=== PATIENT | female | born 1945 | race Caucasian/White ===

== ENCOUNTER → 2018-12-15 | Outpatient (CLI) | payer MEDICARE ==
--- NOTE | 2018-12-15 11:43 | Diagnostic Imaging Report ---
INDICATION: Shortness of breath. TIME OF EXAMINATION: 11:17 AM. COMPARISON: No prior studies are available for comparison. FINDINGS: The heart is enlarged. There appears to be some infiltrate in the right base. Both costophrenic angles are blunted which could indicate small effusions. The mid and upper lung mckeon are clear. There is no pneumothorax. IMPRESSION: Cardiomegaly with right basilar infiltrate and trace bilateral effusions. Dictated by: Dictated on workstation # [id number]
== END ==
LOC: RAD FS 10:57
PROVIDERS: ATTEND Nurse Practitioner Family
DX: I51.7 Cardiomegaly (principal); R91.8 Other nonspecific abnormal finding of lung field; R06.02 Shortness of breath
CPT/HCPCS: 71046

== ENCOUNTER → 2019-06-17 | Outpatient (CLI) | payer MEDICARE, OTHER | LOC: CARD 09:22 | PROVIDERS: ATTEND Internal Medicine Cardiovascular Disease | DX: I08.3 Combined rheumatic disorders of mitral, aortic and tricuspid valves (principal); I10 Essential (primary) hypertension; E11.9 Type 2 diabetes mellitus without complications; E78.2 Mixed hyperlipidemia; R79.89 Other specified abnormal findings of blood chemistry | CPT/HCPCS: 93306 ==

== ENCOUNTER → 2019-07-06 | Outpatient (CLI) | payer MEDICARE, OTHER ==
[~2019-07-06] VITALS: Ht 177 cm; Wt 86.0 kg
[~2019-07-06] MED LIST: CATHETER FLUSH 10 ML SYR IV PRN; REGADENOSON 0.4 MG/5 ML SYR (LEXISCAN) IV ONE
--- NOTE | 2019-07-06 17:56 | STRESS TEST ---
DATE OF SERVICE: 07/06/2019 EXERCISE MYOVIEW STRESS TEST REPORT REFERRING PHYSICIAN: [facility]. Baseline heart rate is 62. Baseline blood pressure 195/84. Baseline EKG is sinus rhythm with nonspecific T-wave abnormality. In summary, the patient was injected with 10.17 mCi of technetium-99 Myoview and the resting images were obtained. Then, the patient received 0.4 mg of Lexiscan followed by 29.2 mCi of technetium-99 Myoview. Throughout the test, there were no EKG changes. The resting and stress images were reviewed and compared in the short axis, horizontal long axis, and vertical long axis views. Review of the images showed breast attenuation with typical female pattern. No significant ischemia or infarction was seen. SSS is 5, SDS 3, TID value 0.75. On the gated images, the left ventricle appeared to be in normal size with normal contractility. Calculated ejection fraction 58%. IN CONCLUSION: 1. The patient tolerated Lexiscan well. 2. No typical female pattern with breast attenuation. No significant ischemia or infarction on SPECT images. 3. Normal left ventricular size with normal contractility. Calculated ejection fraction 58%. Job ID: [id number] DocumentID: [id number] Dictated Date: 07/06/2019 17:44:01 Advertising Specialist Date: 07/06/2019 17:55:45 Dictated By: INDRA WEBB MD
== END ==
LOC: CARD 11:48
PROVIDERS: ATTEND Internal Medicine Cardiovascular Disease
DX: E78.2 Mixed hyperlipidemia (principal); E11.9 Type 2 diabetes mellitus without complications; I10 Essential (primary) hypertension; R06.09 Other forms of dyspnea
CPT/HCPCS: 78452; 93017